=== PATIENT | female | born 1965 | race Caucasian/White ===

== ENCOUNTER → 2022-05-30 | Outpatient (CLI) | payer OTHER | LOC: US 11:26 | PROVIDERS: ATTEND Specialist | DX: E28.8 Other ovarian dysfunction (principal) | CPT/HCPCS: 76830; 76856 ==

== ENCOUNTER → 2023-05-24 | Outpatient (REF) | payer OTHER | LOC: CARD 09:28 | PROVIDERS: ATTEND Family Medicine | DX: R09.89 Other specified symptoms and signs involving the circulatory and respiratory systems (principal) | CPT/HCPCS: 93880; 93925 ==